=== PATIENT | male | born 1950 | race Caucasian/White ===

== ENCOUNTER 2018-03-11 22:35 | Inpatient (IN) | payer MEDICAID, MEDICARE ==
[2018-03-11] MEDS ORDERED: Sodium Chloride 0.9% 1,000 ML IV ONE (23:04)
[2018-03-11] MEDS ORDERED: Iohexol 240 (50 ml) PO ONE (23:04)
--- NOTE | 2018-03-11 23:06 | C.PDOC ---
Chief Complaint (Nursing): Abdominal Pain Past Medical History Vital Signs: Last Vital Signs Temp 99.4 F 03/11/18 22:40 Pulse 61 03/11/18 22:40 Resp 20 03/11/18 22:40 BP 178/82 H 03/11/18 22:40 Pulse Ox 96 03/11/18 22:40 - Medical History PMH: Kidney Stones, Chronic Kidney Disease Family History: States: Unknown Family Hx - Social History Hx Alcohol Use: No Hx Substance Use: No - Immunization History Hx Tetanus Toxoid Vaccination: No Hx Influenza Vaccination: No Hx Pneumococcal Vaccination: No ED Course And Treatment O2 Sat by Pulse Oximetry: 96 Disposition - Disposition
--- NOTE | 2018-03-11 23:10 | C.PDOC ---
History Of Present Illness 68 y/o male presents to the ED complaining of abdominal pain that began a few hours ago. Patient reports he took lactulose and had a bowel movement today, without any relief of pain. He describes generalized pain. No associated vomit ing or diarrhea. Patient denies any fever, chills, bodyaches, headache, or other associated symptoms. Time Seen by Provider: 03/11/18 23:00 Chief Complaint (Nursing): Abdominal Pain History Per: Patient History/Exam Limitations: no limitations Onset/Duration Of Symptoms: Hrs Current Symptoms Are (Timing): Still Present Location Of Pain/Discomfort: Diffuse Quality Of Discomfort: "Pain" Past Medical History Reviewed: Historical Data, Nursing Documentation, Vital Signs Vital Signs: Last Vital Signs Temp 99.4 F 03/11/18 22:40 Pulse 61 03/11/18 22:40 Resp 20 03/11/18 22:40 BP 178/82 H 03/11/18 22:40 Pulse Ox 96 03/11/18 23:06 - Medical History PMH: Kidney Stones, Chronic Kidney Disease Surgical History: No Surg Hx Family History: States: Unknown Family Hx - Social History Hx Alcohol Use: No Hx Substance Use: No - Immunization History Hx Tetanus Toxoid Vaccination: No Hx Influenza Vaccination: No Hx Pneumococcal Vaccination: No Review Of Systems Constitutional: Negative for: Fever, Chills Gastrointestinal: Positive for: Nausea, Abdominal Pain. Negative for: Vomiting, Diarrhea, Constipation, Hematochezia Genitourinary: Negative for: Dysuria, Hematuria Neurological: Negative for: Weakness, Headache Physical Exam - Physical Exam Appears: Non-toxic, In Acute Distress (moderate painful distress) Skin: Normal Color, Warm, Dry Head: Atraumatic, Normacephalic Eye(s): bilateral: Normal Inspection, PERRL, EOMI Oral Mucosa: Moist Neck: Normal ROM Chest: Symmetrical Cardiovascular: Rhythm Regular, No Murmur Respiratory: Normal Breath Sounds, No Accessory Muscle Use Gastrointestinal/Abdominal: Soft, Tenderness (generalized), No Guarding, No Rebound Back: Normal Inspection Extremity: Bilateral: Atraumatic, Normal Color And Temperature Neurological/Psych: Oriented x3, Normal Speech ED Course And Treatment - Laboratory Results Result Diagrams: 03/11/18 23:18 03/11/18 23:18 O2 Sat by Pulse Oximetry: 96 (RA) Pulse Ox Interpretation: Normal - CT Scan/US CT A/P Other Rad Studies (CT/US): Read By Radiologist, Radiology Report Reviewed CT/US Interpretation: Name:PAYTON ZIMMERMAN Exam Date:Mar 12, 2018 12:27:41 AM EST. Modality Type:CT\\SR. Description:CT - ABDOMEN AND PELVIS WITH CORONAL AND SAGITTAL MPRS. Gender:M Laterality:Not applicable. :51 Referring Physician:SHIRA GROSS MD CT SCAN OF THE ABDOMEN AND PELVIS WITH CONTRAST. CLINICAL HISTORY: Abdominal pain. TECHNIQUE: Multiple axial and coronal CT images were obtained through the abdomen and pelvis after administration of intravenous and oral contrast material. COMMENTS: The liver is of uniform attenuation without mass or defect. There is no intra or extrahepatic biliary ductal dilatation. The spleen is normal. The gallbladder is within normal limits. The pancreas is of normal contour and attenuation characteristics. There is no evidence of adrenal mass. 8.9x6.5 mm obstructing stone of the right ureter at L5. Moderate right hydroureteronephrosis. Right perinephric fat stranding. 1.4 cm right renal mid calyceal group nonobstructing stone. Multifocal scarring of the right kidney. Bilateral simple renal cysts. No evidence for appendicitis. There is no bowel wall thickening. No evidence for small or large bowel obstruction. There is no evidence of abdominal ascites or lymphadenopathy. Supraumbilical fat containing anterior abdominal wall hernia without incarceration. There is no evidence of intrinsic or extrinsic bladder mass. There is no pelvic ascites or lymphadenopathy. Mild prostatomegaly. Prostatic calcifications are noted. Bilateral basilar subsegmental atelectatic pulmonary changes. Images of the lung bases show no evidence of pleural or parenchymal mass. There are no pleural effusions. The bony structures are free of lytic or blastic lesions. Bilateral fat containing inguinal hernias. IMPRESSION: Obstructing stone of the right ureter. Progress Note: Routine blood work, UA, and lipase level ordered. CXR taken. Administered IV fluids and 30 mg IV Toradol for pain. CT Abd/pelvis ordered with PO & IV contrast. Findings reviewed and discussed with patient. - Physician Consult Information Time Consulting Physician Contacted: 01:52 Physician Contacted: Dian Matos Disposition Discussed With : Dian Matos Doctor Will See Patient In The: Hospital Counseled Patient/Family Regarding: Diagnosis - Disposition Disposition: HOSPITALIZED Disposition Time: 01:58 Condition: STABLE Forms: [email or web address] (Frisian) - Clinical Impression Clinical Impression: Abdominal colic, Obstructive uropathy, Ureteral obstruction, left - Scribe Statement The provider has reviewed the documentation as recorded by the Sweta Pineda Provider Attestation: All medical record entries made by the Sweta were at my direction and personally dictated by me. I have reviewed the chart and agree that the record accurately reflects my personal performance of the history, physical exam, medical decision making, and the department course for this patient. I have also personally directed, reviewed, and agree with the discharge instructions and disposition.
[2018-03-11] MEDS ORDERED: Iohexol 240 (50 ml) ONE (23:20)
[2018-03-11] MEDS ORDERED: Sodium Chloride 0.9% 1,000 ML ONE (23:20)
[2018-03-11 23:22] LABS: BASO # 0.1 K/uL (0.0-0.2); BASO % 0.6 % (0.0-2.0); EOS % 0.4 % (0.0-4.0); LYMPH % 9.4 % (20.0-40.0); MEAN CELL VOLUME 85.1 fL (80.0-94.0); MEAN CORPUSCULAR HEMOGLOBIN 29.6 pg (27.0-31.0); MEAN CORPUSCULAR HGB CONC 34.8 g/dL (33.0-37.0); MONO # 0.8 K/uL (0.0-0.8); MONO % 7.6 % (0.0-10.0); NEUT # 8.9 K/uL (1.8-7.0); PLATELET COUNT 176 K/uL (130-400); RBC 5.08 Mil/uL (4.40-5.90); RED CELL DISTRIBUTION WIDTH 13.7 % (11.5-14.5)
[2018-03-11 23:26] LABS: WHITE BLOOD COUNT 10.9 K/uL (4.8-10.8)
[2018-03-11 23:28] LABS: URINE BACTERIA OCC (<OCC); URINE BILIRUBIN NEGATIVE (NEGATIVE); URINE BLOOD 2+ (NEGATIVE); URINE CALCIUM OXALATE CRYSTALS MOD /hpf (<OCC); URINE CLARITY Hazy (Clear); URINE COLOR Yellow (YELLOW); URINE GLUCOSE (UA) NORMAL (Normal); URINE LEUKOCYTE ESTERASE NEG Leu/uL (Negative); URINE PROTEIN 1+ mg/dL (NEGATIVE); URINE UROBILINOGEN NORMAL mg/dL (0.2-1.0)
[2018-03-11 23:36] LABS: ALB/GLOB RATIO 1.4 (1.0-2.1); ALBUMIN 4.4 g/dL (3.5-5.0); ALT/SGPT 17 U/L (21-72); AST/SGOT 22 U/L (17-59); BLOOD UREA NITROGEN 14 mg/dL (9-20); CALCIUM 8.9 mg/dl (8.6-10.4); GFR NON-AFRICAN AMERICAN 55; LIPASE 37 U/L (23-300)
[2018-03-12] MEDS ORDERED: Morphine 4 MG/ML VIAL IV STA (00:44)
[2018-03-12 01:52] LABS: LYMPHOCYTE 7 % (20-40); MONOCYTE 8 % (0-10); NEUTROPHIL 85 % (50-75); PLATELET ESTIMATE NORMAL (NORMAL); TOTAL CELLS COUNTED 100
[2018-03-12] MEDS ORDERED: Ciprofloxacin 400mg/200ml D5W 400 MG/200 ML BAG IVPB STA (01:57)
[2018-03-12] MEDS ORDERED: Oxycodone/Acetaminophen 5/325 mg Tab PO PRN (02:07)
[2018-03-12 02:55] VITALS: RESP 20
[2018-03-12 08:18] VITALS: BP 103/63; PULSE 70; TEMP 97.9; O2SAT 96
--- NOTE | 2018-03-12 08:54 | CT ---
Date of service: 03/12/2018 PROCEDURE: CT Abdomen and Pelvis with contrast HISTORY: abd pain COMPARISON: Comparison is made to the previous study dated 01/28/2012 TECHNIQUE: Contrast dose: 10 milliliter of Visipaque 320 intravenously. Axial and reformatted coronal and sagittal CT images of the abdomen and pelvis were obtained after IV and oral contrast administration Radiation dose: Total exam DLP = 1057.53 mGy-cm. This CT exam was performed using one or more of the following dose reduction techniques: Automated exposure control, adjustment of the mA and/or kV according to patient size, and/or use of iterative reconstruction technique. FINDINGS: LOWER THORAX: Unremarkable. LIVER: There is no evidence of mass lesion or acute pathology in the liver possible mild hepatic steatosis. GALLBLADDER AND BILE DUCTS: No evidence of acute cholecystitis or biliary obstruction. PANCREAS: Unremarkable. No gross lesion or ductal dilatation. SPLEEN: Unremarkable. ADRENALS: Unremarkable. No mass. KIDNEYS AND URETERS: There is severe right hydronephrosis due to obstructing stone in the proximal right ureter measures 10 millimeter in the transverse diameter. There is nonobstructing calculus at the right kidney measures 13 millimeter in the transverse diameter and 7.7 millimeter in the AP diameter. There is small amount of fluid around the proximal ureter and right kidney. There is also possible nonobstructing calculus in the right kidney measures 7 millimeter. There are 2 large cystic formation seen in the right kidney. No evidence of left hydronephrosis. Multiple cyst in the left kidney are also noted. VASCULATURE: Unremarkable. No aortic aneurysm. No aortic atherosclerotic calcification or mural plaque present. BOWEL: Colonic diverticulosis are seen without evidence of diverticulitis. There is no evidence of small bowel obstruction. APPENDIX: Normal appendix. PERITONEUM: Unremarkable. No free fluid. No free air. LYMPH NODES: Unremarkable. No enlarged lymph nodes. BLADDER: Unremarkable. REPRODUCTIVE: The prostate is mildly enlarged. BONES: No acute fracture. OTHER FINDINGS: None. IMPRESSION: Severe right hydronephrosis up to obstructing calculus at the proximal right ureter measures 10 millimeter in the transverse diameter. Large nonobstructing calculus in the midpole of the right kidney. Additional findings as discussed above. Preliminary report was submitted by [facility] Radiology contains concordant findings.
[2018-03-12] MEDS ORDERED: Enoxaparin 40 mg Syringe SC SCH (10:00)
--- NOTE | 2018-03-12 10:59 | RAD ---
Date of service: 03/12/2018 PROCEDURE: CHEST RADIOGRAPH, 1 VIEW HISTORY: abd pain COMPARISON: Comparison is made with 03/03/2015 FINDINGS: LUNGS: No evidence of new infiltrate or consolidation in the lungs. PLEURA: No pneumothorax or pleural fluid seen. CARDIOVASCULAR: No aortic atherosclerotic calcification present. Normal. OSSEOUS STRUCTURES: No significant abnormalities. VISUALIZED UPPER ABDOMEN: Normal. OTHER FINDINGS: None. IMPRESSION: No active disease.
[2018-03-12] MEDS ORDERED: Influenza Vaccine 60 MCG/0.5 ML SYR (3 yr & up) IM ONE (14:00)
[2018-03-12] MEDS ORDERED: Pneumococcal 23-Valent Vaccine IM ONE (14:00)
--- NOTE | 2018-03-13 08:16 | HP ---
HISTORY OF PRESENT ILLNESS: A 68-year-old male, admitted to the hospital with a chief complaint of being alcoholic, presence of kidney stone in the past, patient came to the ER hydronephrosis, non-malignant calculus. Advised admission in the hospital. PHYSICAL EXAMINATION: GENERAL: The patient is awake, alert, and oriented. VITAL SIGNS: Temperature 98, pulse 90. HEENT: Within normal limits. NECK: Supple. CHEST: Symmetrical. HEART: Regular. ABDOMEN: Soft. EXTREMITIES: No edema. ASSESSMENT AND PLAN: The patient suffers from renal colic. The patient is to get intravenous fluids. Neurology consult. Pain medication. Dian Matos MD
== END 2018-03-12 14:20 | disposition home or self-care (01) | DRG 700 ==
LOC: C.ER 22:35 → C.3T 03-12 02:00
PROVIDERS: ADMIT Internal Medicine Pulmonary Disease; ATTEND Internal Medicine Pulmonary Disease
DX: N13.9 Obstructive and reflux uropathy, unspecified (principal); N18.9 Chronic kidney disease, unspecified

== ENCOUNTER 2018-03-17 10:28 | Day surgery (SDC) | payer MEDICARE ==
[2018-03-17 12:32] LABS: BASO # 0.1 K/uL (0.0-0.2); BASO % 0.5 % (0.0-2.0); HEMOGLOBIN 13.5 g/dL (12.0-18.0); LYMPH # 1.2 K/uL (1.0-4.3); LYMPH % 8.2 % (20.0-40.0); MEAN CELL VOLUME 83.6 fL (80.0-94.0); MEAN CORPUSCULAR HEMOGLOBIN 28.6 pg (27.0-31.0); MEAN CORPUSCULAR HGB CONC 34.2 g/dL (33.0-37.0); MEAN PLATELET VOLUME 9.7 fL (7.2-11.7); MONO # 1.2 K/uL (0.0-0.8); MONO % 8.2 % (0.0-10.0); NEUT # 12.5 K/uL (1.8-7.0); NEUT % 83.1 % (50.0-75.0); RBC 4.73 Mil/uL (4.40-5.90); RED CELL DISTRIBUTION WIDTH 13.1 % (11.5-14.5)
[2018-03-17 12:33] LABS: PLATELET COUNT 284 K/uL (130-400)
[2018-03-17 12:46] LABS: ALB/GLOB RATIO 1.1 (1.0-2.1); ALBUMIN 3.6 g/dL (3.5-5.0); CALCIUM 8.9 mg/dl (8.6-10.4)
[2018-03-17 12:49] LABS: URINE BILIRUBIN NEGATIVE (NEGATIVE); URINE BLOOD 1+ (NEGATIVE); URINE CLARITY Clear (Clear); URINE COLOR Yellow (YELLOW); URINE GLUCOSE (UA) NORMAL (Normal); URINE LEUKOCYTE ESTERASE NEG Leu/uL (Negative); URINE PROTEIN NEGATIVE (NEGATIVE); URINE UROBILINOGEN NORMAL mg/dL (0.2-1.0)
--- NOTE | 2018-03-17 12:56 | C.PDOC ---
History Of Present Illness 68 y/o male with history of Kidney stone presents to ED for further evaluation of abdominal pain started on 03/11/18. Patient states he was evaluated at ED on 03/11 and admitted for right kidney stone. Pt followed up with Dr. Adam yesterday for Lithotripsy and was instructed to come to ED today for further evaluation. Patient denies hematuria, dysuria, nausea, vomiting, fever, testicular pain, abdominal pain or any other complaints at this time. Time Seen by Provider: 03/17/18 11:30 Chief Complaint (Nursing): Male Genitourinary History Per: Patient, Family (son) History/Exam Limitations: no limitations Onset/Duration Of Symptoms: Days Current Symptoms Are (Timing): Still Present Past Medical History Reviewed: Historical Data, Nursing Documentation, Vital Signs Vital Signs: Last Vital Signs Temp 98.5 F 03/17/18 10:53 Pulse 76 03/17/18 10:53 Resp 18 03/17/18 10:53 BP 124/75 03/17/18 10:53 Pulse Ox 95 03/17/18 10:53 - Medical History PMH: Kidney Stones, Chronic Kidney Disease Surgical History: No Surg Hx Family History: States: No Known Family Hx - Social History Hx Alcohol Use: No Hx Substance Use: No - Immunization History Hx Tetanus Toxoid Vaccination: No Hx Influenza Vaccination: No Hx Pneumococcal Vaccination: No Review Of Systems Except As Marked, All Systems Reviewed And Found Negative. Constitutional: Negative for: Fever, Chills Gastrointestinal: Negative for: Nausea, Vomiting, Abdominal Pain Genitourinary: Negative for: Dysuria, Hematuria, Penile Pain Skin: Negative for: Rash Physical Exam - Physical Exam Appears: Non-toxic, No Acute Distress Skin: Warm, Dry, No Rash Head: Atraumatic, Normacephalic Eye(s): bilateral: Normal Inspection, EOMI Nose: Normal Oral Mucosa: Moist Neck: Normal ROM, Supple Chest: Symmetrical Cardiovascular: Rhythm Regular Respiratory: Normal Breath Sounds, No Rales, No Rhonchi, No Wheezing Gastrointestinal/Abdominal: Soft, No Tenderness, No Guarding, No Rebound Back: No Vertebral Tenderness, No Paraspinal Tenderness Extremity: Normal ROM, Capillary Refill (<2 seconds) Neurological/Psych: Oriented x3, Normal Speech, Normal Cognition ED Course And Treatment - Laboratory Results Result Diagrams: 03/17/18 12:26 03/17/18 12:26 O2 Sat by Pulse Oximetry: 95 - CT Scan/US CT abd/pelvis Other Rad Studies (CT/US): Read By Radiologist, Radiology Report Reviewed CT/US Interpretation: IMPRESSION: Interval worsening of right hydronephrosis since the previous exam. Interval significant worsening of right perinephric stranding and perinephric fluid since the previous study. The possibility of leak or contained rupture in the collecting system of the right kidney should be considered. Obstructing stone at the proximal right ureter is again noted. Progress Note: D/w Dr. Adam who requests patient have repeat CT scan. D/w Dr. Adam CT scan results, evaluated patient at bedside and instructs patient be admitted. Disposition - Disposition Disposition: HOSPITALIZED Disposition Time: 15:00 Condition: STABLE - Clinical Impression Clinical Impression: Obstructive uropathy, Hydronephrosis - PA / RN MIDWIFE / Resident Statement MD/DO has reviewed & agrees with the documentation as recorded. - Scribe Statement The provider has reviewed the documentation as recorded by the Sweta Rainey All medical record entries made by the Sweta were at my direction and personally dictated by me. I have reviewed the chart and agree that the record accurately reflects my personal performance of the history, physical exam, medical decision making, and the department course for this patient. I have also personally directed, reviewed, and agree with the discharge instructions and disposition.
--- NOTE | 2018-03-17 12:57 | CT ---
Date of service: 03/17/2018 PROCEDURE: CT Abdomen and Pelvis without intravenous contrast HISTORY: flank pain COMPARISON: Comparison is made to the previous study dated 03/12/2018 and study dated 01/28/2012 TECHNIQUE: Axial and reformatted coronal and sagittal CT images of the abdomen and pelvis were obtained without IV or oral contrast administration.. Contrast dose: 0 Radiation dose: Total exam DLP = 1023.28 mGy-cm. This CT exam was performed using one or more of the following dose reduction techniques: Automated exposure control, adjustment of the mA and/or kV according to patient size, and/or use of iterative reconstruction technique. FINDINGS: LOWER THORAX: Unremarkable. LIVER: Mild diffuse increased attenuation of the liver is noted. The liver is mildly enlarged. GALLBLADDER AND BILE DUCTS: Bladder is contracted without evidence of acute cholecystitis. PANCREAS: Unremarkable. No gross lesion or ductal dilatation. SPLEEN: Unremarkable. ADRENALS: Unremarkable. No mass. KIDNEYS AND URETERS: Again noted is severe right hydronephrosis up to 11 millimeter calculus at the proximal right ureter. Interval appearance of the perinephric stranding and trace fluid especially around the right renal pelvis and proximal ureter. Again noted is 14 millimeter nonobstructing calculus at the mid to lower pole of the right kidney. There are cystic lesions again noted in both kidneys. No evidence of significant left hydronephrosis. VASCULATURE: Unremarkable. No aortic aneurysm. Small punctate atherosclerotic calcification noted in the abdominal aorta and iliac arteries. BOWEL: Scattered colonic diverticulosis are again noted without evidence of diverticulitis. No evidence of bowel obstruction. APPENDIX: No evidence of appendicitis. PERITONEUM: Mesenteric stranding and trace fluid noted adjacent to the right kidney with possible trace right retroperitoneal fluid also. LYMPH NODES: Unremarkable. No enlarged lymph nodes. BLADDER: Unremarkable. REPRODUCTIVE: Unremarkable. BONES: No acute fracture. OTHER FINDINGS: There is a fat containing ventral hernia seen above the umbilicus measures 7 centimeter in the longitudinal diameter and 3.4 centimeter in the AP diameter. IMPRESSION: Interval worsening of right hydronephrosis since the previous exam. Interval significant worsening of right perinephric stranding and perinephric fluid since the previous study. The possibility of leak or contained rupture in the collecting system of the right kidney should be considered. Obstructing stone at the proximal right ureter is again noted.
[2018-03-17 13:04] LABS: LYMPHOCYTE 7 % (20-40); MONOCYTE 6 % (0-10); NEUTROPHIL 87 % (50-75); TOTAL CELLS COUNTED 100
[2018-03-17 13:05] LABS: PLATELET ESTIMATE NORMAL (NORMAL)
[2018-03-17] MEDS ORDERED: Iohexol 240 (50 ml) ONE (14:58)
[2018-03-17] MEDS ORDERED: Lidocaine 2% Jelly (Uro-Jet) ONE (14:58)
[2018-03-17] MEDS ORDERED: cefTRIAXone 1 gm 1 GM/100 ML BAG IVPB ONE (14:58)
[2018-03-17] MEDS ORDERED: Midazolam 2 MG/2 ML VIAL ONE ×2 (14:59→15:22)
[2018-03-17] MEDS ORDERED: Propofol 10 mg/ml Inj (20 ML) ONE ×2 (15:03)
[2018-03-17] MEDS ORDERED: Lactated Ringer's 1,000 ML IV ONE (15:10)
[2018-03-17] MEDS ORDERED: HYDROmorphone 0.5 mg/0.5 ml ISec IVP PRN (15:36)
[2018-03-17] MEDS ORDERED: Oxycodone/Acetaminophen 5/325 mg Tab PO PRN (16:06)
[2018-03-17] MEDS ORDERED: Gentamicin 80 mg in 0.9% NS 80 MG/100 ML BAG IVPB SCH (16:15)
--- NOTE | 2018-03-17 16:30 | RAD ---
Date of service: 03/17/2018 HISTORY: RIGHT HYDRONEPHROSIS/RT URETERAL STONE COMPARISON: CT abdomen and pelvis without contrast performed 03/17/18 FINDINGS: BOWEL: Nonobstructive bowel gas pattern. Residual contrast noted within several diverticula. BONES: Degenerative changes of the spine. OTHER FINDINGS: Known right ureteral calculus is not appreciated by plain film. IMPRESSION: Residual oral contrast noted within several colonic diverticula. Known right ureteral calculus is not appreciated by plain film.
[2018-03-17 17:11] VITALS: RESP 18; TEMP 97.8
[2018-03-17 17:31] VITALS: BP 135/61; PULSE 66
[2018-03-17 18:05] VITALS: O2SAT 95
--- NOTE | 2018-03-18 02:16 | HP ---
UROLOGY EMERGENCY ADMISSION NOTE REASON FOR ADMISSION: Mr. Jonas is a very pleasant gentleman. He is here for the emergency admission for severe right hydronephrosis. HISTORY OF PRESENT ILLNESS: Mr. Jonas is a very pleasant gentleman, who I initially met last week. He had a stone, , now communicating. See previous notes. The patient, to my estimation, refused a stent. I thought also his children were refusing a stent, but apparently, just the patient that did not want a stent. He had previously, where he says 35 years back, been treated with a shock wave lithotripsy. He must have been one of original stone treatments since, I thought that would make it did go back to 1982, which is about just when the shock wave lithotripsy began in the [facility]. Either way, he wanted just a shock wave with no stents, but I think this was less than an ideal situation and I am concerned that the patient with diabetes, 68 years old, would develop sepsis. He was initially in the hospital, initially placed on antibiotics, and this concerned me more not to be masking, but once he was on the antibiotics, we are not going to stop it, and once we started a course of treatment, to continue through with it. Meanwhile, we discussed options and yesterday we did a shock wave lithotripsy in the hope that may be this would open, although this was not our best recommendation. Meanwhile, this patient is now feeling perfect. Although he is not having nausea or vomiting, he is having abdominal discomfort. He has not passed any stones, so we asked him to come here to the emergency room, where we did a CBC with a white count of 50,000, not drastic, not perfectly septic. No fever, but we reviewed the CT scan and there is tremendous amount of hydronephrosis, definitely worse than last week. We have discussed the options here now today and I am going to put a stent in him. I think it is safer for the patient and now he is consenting and I think it is a odom idea medically to help him better. PAST MEDICAL AND SURGICAL HISTORY: Otherwise, unchanged. See the notes from last week. Currently, he is being admitted under my service. MEDICATIONS: See the chart. ALLERGIES: NO KNOWN ALLERGIES. SOCIAL HISTORY: He lives with his son, who is a fourth year student in medical school. PHYSICAL EXAMINATION: GENERAL: A well-nourished male, in no apparent distress. VITAL SIGNS: Within normal limits and included in the chart. ABDOMEN: See the remainder of the physical exam. Otherwise, unremarkable from standpoint. GENITOURINARY: Normal male phallus without discharge. No testicular masses. Scrotal exam reveals normal testis, no masses left or right. RECTAL: A 13 g prostate, soft, and smooth. DIAGNOSIS: Urolithiasis with a recently heavy stone, brought in with a kidney stone and also ureteral stone with massive right hydronephrosis, which is worse than previous imaging, and the stone is still present. The concern is with the hydronephrosis that this will be purulent material, so we will notice once we put a stent in. We discussed options, risks, and benefits. PLAN: The plan is as follows: 1. Antibiotics. 2. Cystoscopy. 3. Retrograde pyelogram. 4. Stent insertion on the right side. We are not going to touch anything on the left today. The possibility of ureteroscopy with laser is entertained if we cannot get a stent in. I am going to try though not to do too much in the way of manipulation. Stalin Adam MD
--- NOTE | 2018-03-18 07:01 | OP ---
PROCEDURE DATE: 03/17/2018 UROLOGY OPERATIVE NOTE PREOPERATIVE DIAGNOSES: Urolithiasis, massive hydronephrosis, heavy stone burden with a ureteral stone and a kidney stone. POSTOPERATIVE DIAGNOSES: Urolithiasis, massive hydronephrosis, heavy stone burden with a ureteral stone and a kidney stone PROCEDURES: Cystoscopy, right retrograde pyelogram, insertion of right double-J stent. COMPLICATIONS: There were no complications. BLOOD LOSS: 10 mL. At the termination of the procedure, the patient had a good double-J stent in both above and below and is confirmed with x-ray study. The entire procedure was done with a camera and a fluoroscopy. The tiler's assistant helped me. INDICATIONS: See history and physical for further details. He is a very pleasant gentleman who is now 68-year-old diabetic with massive hydronephrosis, not passing stone, worsening hydronephrosis. We discussed options. Our recommendation is to proceed with what we are doing. The patient consented. Please see the previous notes regarding this as well. PROCEDURE IN DETAIL: After obtaining informed consent, the patient was placed on the table. Routine monitors were placed. Time-out was called to confirm the patient and positioning. We provided antibiotic prophylaxis. The patient was already on antibiotic with extra antibiotics. We gave 1 g of Rocephin. The procedure was continued with cystoscope via urethra. The anterior urethra was normal. No strictures. Verumontanum was moderately visually occlusive. All within normal limits. We identified the ureteral orifices both left and right sides, took pictures, and did a retrograde pyelogram. We the opposite site what we did from yesterday with the IV contrast. We could see the stone, nicely identified in similar location. At this point, we passed a wire with difficulty. See the pictures. There were a couple of images that we saved with the wire was coiling. . We did the open-ended technique where we injected a little extra material, and then we passed the wire gently, carefully, slowly under the fluoroscopic imaging. This goes up to the kidney nicely. . Open-ended wire goes up. The wire went all the way up to the kidney. We confirmed our position with fluoroscopic imaging. We put the wire back in. We put a double-J stent in. We passed this easily. The patient tolerated the procedure without complications. The bladder was emptied. The cystoscope was removed. The patient tolerated the procedure without complications. Stalin Adam MD
--- NOTE | 2018-03-18 16:30 | RAD ---
Date of service: 03/17/2018 PROCEDURE: Intraoperative Fluoroscopy. HISTORY: RIGHT HYDRONEPHROSIS FINDINGS: Fluoroscopic assistance was provided for cystogram, unilateral retrograde and stent placement. Please refer to the operative report from JOSE James , MD T[facility]. Total fluoroscopic time (continuous mode) utilized during the procedure 28.4 seconds. Dose report: DLP 1.04 (mGy/m2)
== END 2018-03-17 17:30 | disposition home or self-care (01) ==
LOC: C.ER 10:28 → C.SDS 14:48
PROVIDERS: ATTEND Urology
DX: N13.2 Hydronephrosis with renal and ureteral calculous obstruction (principal); E11.22 Type 2 diabetes mellitus with diabetic chronic kidney disease; N18.9 Chronic kidney disease, unspecified; Z87.442 Personal history of urinary calculi
CPT/HCPCS: 52005; 52332; 74018; 74176; 80053; 81001; 85025; 87086; J0696; J1170; J1580; J2704; J7120

== ENCOUNTER 2018-03-31 13:16 | Day surgery (SDC) | payer MEDICARE ==
[2018-03-31 09:00] VITALS: BMI 32.5
[2018-03-31] MEDS ORDERED: Propofol 10 mg/ml Inj (20 ML) ONE ×2 (15:44→16:22)
[2018-03-31] MEDS ORDERED: Midazolam 2 MG/2 ML VIAL ONE (15:44)
[2018-03-31] MEDS ORDERED: HYDROmorphone 0.5 mg/0.5 ml ISec IVP PRN (15:47)
[2018-03-31] MEDS ORDERED: Iohexol 240 (50 ml) ONE (15:49)
[2018-03-31] MEDS ORDERED: cefTRIAXone 1 gm 1 GM/100 ML BAG IVPB ONE (15:49)
[2018-03-31] MEDS ORDERED: Oxycodone/Acetaminophen 5/325 mg Tab PO PRN (16:01)
[2018-03-31 18:32] VITALS: BP 119/69; PULSE 69; RESP 18; TEMP 98; O2SAT 100
--- NOTE | 2018-04-01 14:58 | RAD ---
Date of service: 03/31/2018 HISTORY: RIGHT URETERAL STONE COMPARISON: Abdominal radiograph performed 03/17/18 FINDINGS: BOWEL: Nonobstructive bowel gas pattern. BONES: No acute osseous abnormality is detected. OTHER FINDINGS: Right ureteral stent. 10 mm calculus at the expected location of the right lower pole. IMPRESSION: Right ureteral stent. 10 mm calculus at the expected location of the right lower pole.
--- NOTE | 2018-04-01 15:58 | HP ---
REASON FOR ADMISSION: He is for treatment of kidney stone. HISTORY OF PRESENT ILLNESS: A very pleasant gentleman. See my previously dictated notes. He is now here for his followup. We initially did a right ESWL. My recommendation is actually at that time was to put a stent and then ESWL, but we did it in a different fashion. We did an ESWL and then we did a cysto and stent. The patient now has some stones that he is presenting with. We did a followup ultrasound. despite this is in good location. He has another stone up in the kidney. We are not treating that. It really has a heavy stone burden. For now, we just want to treat the stone that is causing any kind of obstruction, so today he is here for cysto, stent removal and ureteroscopy, lithotripsy, any ureteral stent. We are not touching the right kidney stone. stones. We will put this on a back and plan to do. We also discussed other options in terms of stent, in terms of stone treatment, and shockwave lithotripsy. We also discussed diet. But for now, there are really no major changes other than increasing hydration. I also did not yet remember checking, but we will check for a parathyroid hormone to make sure there are no abnormalities. Based on the x-rays, it is calcium-based stone. PAST MEDICAL AND SURGICAL HISTORY: As listed above. Otherwise unremarkable. No other recent changes. Initially, we met him here in [facility]. We then brought him to the stone center. Then, we brought him back here to [facility]. See all the previous notes. MEDICATIONS: See chart. ALLERGIES: SEE CHART. SOCIAL HISTORY: Essentially unremarkable. He is here with his son. He has two interesting sons, one is fourth year medical student, applying for orthopedics. The other is a podiatry resident. Otherwise unremarkable. He is well alert and understands what is going on. PHYSICAL EXAMINATION: GENERAL: Well nourished, in no apparent distress. VITAL SIGNS: Noted to be within normal limits. NECK: No obvious adenopathy. LUNGS: Clear. HEART: S1 and S2. ABDOMEN: Soft. Nontender. No flank mass appreciated. GENITOURINARY: Normal male phallus without discharge. No testicular mass. These are all to be from previous notes. RECTAL: Has 20 to 30 g prostate, soft and smooth. ASSESSMENT AND PLAN: In summary, a very pleasant 68-year-old gentleman with a heavy stone burden. Today, he is here just with hydronephrosis. We had a long discussion about hydronephrosis versus obstruction. At this point, he may have chronic hydronephrosis due to long-term obstruction. Today, we are planning for cystoscopy, removal of the stent, ureteroscopy; and if there is any remove the stent completely. Regarding the stone up in the kidney for right side or any other stones, we are going to treat them in the future, but for now we are mostly far from anything causing obstruction. The patient is actually experiencing some stent discomfort that is worsening our process. Here, we are trying completely to get the stent out for . PLAN: 1. Antibiotic prophylaxis. 2. Cystoscopy. 3. Stent removal. 4. Ureteroscopy. 5. Possible laser. 6. Possible re-insertion of stent with dangles. Stalin Adam MD
--- NOTE | 2018-04-01 17:22 | RAD ---
Date of service: 03/31/2018 PROCEDURE: Intraoperative Fluoroscopy. HISTORY: RIGHT UETERAL STONE /KIDNEY STONE FINDINGS: Fluoroscopic assistance was provided. Fluoroscopy time = 15.2 sec.. Radiation dose = 0.60139 mGy-cm . Please refer to the operative report from JOSE James, , MD [facility].
--- NOTE | 2018-04-02 06:15 | OP ---
PROCEDURE DATE: 03/31/2018 PREOPERATIVE DIAGNOSES: 1. Urolithiasis, severe, severe right hydronephrosis. 2. 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 3. Right kidney stone and right ureteral stone. POSTOPERATIVE DIAGNOSES: 1. Urolithiasis, severe, severe right hydronephrosis. 2. 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 3. Right kidney stone and right ureteral stone. There is a tremendously heavy stone burden. PROCEDURE: Cystoscopy, removal of a right double-J stent, right ureteroscopy, right laser lithotripsy of stone with tremendous stone crushing. A right retrograde pyelogram and insertion of right double-J stent. I did want to mention very briefly we did not touch the right kidney stone as we only focused on the right ureter. At the termination of the procedure though, we have what looks good fragmentation for the stone. We were able to insert the double J stent. I do want to mention that the ureters are fairly edematous. In fact, normally I would in this setting with this ____ hydronephrosis, I have left the stent with no dangles and let it sit for another week or two, but in this particular case the patient is clearly uncomfortable with his stent, so we are going to proceed. We left him with dangles and we will discuss further plans. We are also not treating the stone in the kidney right now. Again, the patient wants to see if we can get the stent out as quickly as possible, what we will just do is discuss in the future. A very pleasant gentleman, but initially was very worried about having a stent inserted. I do not think he is worried anymore, but initially he was fairly worried about having a stent inserted and I think this affected some of his judgement. Forward our recommendations. After discussing initial options with the patient, initially we did an echo with no stents. We then did a distal stent insertion. The patient has passed a few teeny bit of stones. That is really not at all relative fair enough ____ with that. The urology operative findings are as follows: 1. Normal anterior urethra. No strictures 2. The verumontanum is pretty visually occlusive, about 3 cm in length. 3. There is tremendous heavy stone burden in the right ureter that we were able to blast completely. 4. ____. At the termination of the procedure, this patient still has hydronephrosis ____ stone up in his right kidney. We treated is that any visualized stone between kidney or the bladder was sanded into pieces. DESCRIPTION OF PROCEDURE: After obtaining informed consent, the patient was placed on the table. Routine monitor placed. Antibiotic prophylaxis was used. A cystoscope was introduced via urethra. Normal anterior urethra. No strictures. The verumontanum is pretty visually occlusive, about 3 cm. The ureteral orifice was identified. The old stent was identified. We removed that without difficulty. I see already a little bit encrusted, but I was able to grab it to the meatus and put a wire on to the kidney ____ pink stone, not a hard calcium stone. It was a pink stone ____, but you can make up the stone in the ureter, tremendously big, and also in the kidney. At this point, we had the wire up to the kidney, I introduced the short rigid ureteroscope without difficulty ____ camera and fluoroscopic imaging. We identified the stone. We set up the laser. We had 355 micron fiber and we set the energy up to about 2.5 joules, maximum energy with the frequency of about 3 and we started breaking the stones and had great fragmentation. The procedure was done with the camera . We had a good vision, and we just kept ____ staying on the stone away from the ureteral orifice. Again, by the termination of the procedure, this particular ____ but very edematous, but overall everything is grossly intact ____ the stone has been there for a while, it is sort of embedded in that wall and took a lot of work in access. We worked very carefully. It is a fairly hard stone, but it does break. After watching a while, followup x-rays look much better. Final pictures obtained. At this point, we put the ureteroscope all the way up to the renal pelvis, even a little higher, injected a little contrast. Even though it is a short ____ that height and we injected a little contrast just to outline the kidney better. We already have the safety wire in. We will use that. We put the double J stent in. On the way out, we examined a little more closely and we did a little more lasering just gently carefully. We put the double J stent in. The patient tolerated without complications. The bladder placed in vancomycin on the previous date. I am going to recommend strongly that at least 48 hours, may be even 72. Further plans will follow. Stalin Adam MD
== END 2018-03-31 18:34 | disposition home or self-care (01) ==
LOC: C.SDS 13:16
PROVIDERS: ATTEND Urology
DX: N13.2 Hydronephrosis with renal and ureteral calculous obstruction (principal)
CPT/HCPCS: 52356; 74018; J0696; J1580; J2250; J2704; J3010